=== PATIENT | male | born 1980 | race African-American/Black ===

== ENCOUNTER 2019-07-19 06:51 | Emergency (ER) | payer BC ==
[~2019-07-19] VITALS: Ht 172.7 cm; Wt 113.4 kg
[2019-07-19 06:52] VITALS: BP 129/83
== END 2019-07-19 07:46 | disposition home or self-care (01) ==
LOC: ER 06:51
DX: R05 Cough (principal); Z20.828 Contact with and (suspected) exposure to other viral communicable diseases; M54.2 Cervicalgia; R10.9 Unspecified abdominal pain; R09.81 Nasal congestion